=== PATIENT | female | born 1960 | race African-American/Black ===

== ENCOUNTER 2018-11-11 09:12 | Emergency (ER) | payer MEDICARE, OTHER ==
[~2018-11-11] VITALS: Ht 160 cm; Wt 103.7 kg
[~2018-11-11 09:12] MED LIST: ABILIFY 5 MG TAB5 M1 PO; ABILIFY MAINTE400 MG IM; AMLODIPINE BESYL5 MG PO; ASA81BEC PO; ASPIRIN81 M2 PO; ATORVASTATIN CA10 MG PO; AYR50 ML NASAL; BENGAY85 GM TP; BENZTROPINE MES1 MG PO; BISMATROL262 MG/15 PO; CELEBREX 200 M200 M1 PO; CLONIDINE HCL0.2 M2 PO; CLONIDINE-TTS0.3 MG TRANSDERM; COLACE100 MG PO; DESYREL50 MG PO; DOXYCYCLINE 10100 M1 PO; HYDROCHLOROTH12.5 MG PO; IBUPROFEN 600600 M1 PO; K-DUR10 MEQ PO; LIPITOR 10 MG10 M1 PO; LORTAB 5-500 T1 EAC1 PO; LOSARTAN POTASS50 MG PO; MECLIZINE HCL25 M1 PO; MOM PO; MYLANTA 12 OZ355 M1 PO; NOVOLOG100 UNIT/1; PREDNISONE 10 M10 M1 PO; PREPARATION H C51 G1 RECTAL; PROAIR HFA8.5 GM INH; PROTONIX40 M2 PO; RISPERDAL4 M1 PO; TOPROL XL100 MG PO; TOPROL XL25 MG PO; TOPROL XL50 MG PO; TRAZODONE HCL PO; TYLENOL EX-STR500 M2 PO; VENTOLIN HFA 1818 GM; WELLBUTRIN XL150 M1 PO
[2018-11-11] MEDS ORDERED: GABAPENTIN 100100 MG PO (10:40)
[2018-11-11] MEDS ORDERED: TRAZODONE HCL50 MG PO (10:40)
[2018-11-11] MEDS ORDERED: METFORMIN HCL500 MG PO (10:41)
[2018-11-11] MEDS ORDERED: ABILIFY15 MG PO (10:42)
[2018-11-11] MEDS ORDERED: SERTRALINE HCL100 MG PO (10:44)
[2018-11-11] MEDS ORDERED: LIPITOR10 MG PO (11:16)
[2018-11-11] MEDS ORDERED: AMLODIPINE BESY10 MG PO (11:16)
[2018-11-11] MEDS ORDERED: NOVOLOG100 UNIT/1 SUBQ (11:18)
[2018-11-11 11:44] VITALS: BP 166/99
[2018-11-11] MEDS ORDERED: ACETAMINOPHEN500 M1 PO (11:55)
== END 2018-11-11 11:44 | disposition home or self-care (01) ==
LOC: ER 09:12
DX: M25.511 Pain in right shoulder (principal); M25.551 Pain in right hip; F17.210 Nicotine dependence, cigarettes, uncomplicated; Z88.0 Allergy status to penicillin; Z88.1 Allergy status to other antibiotic agents; Z88.8 Allergy status to other drugs, medicaments and biological substances; Z88.7 Allergy status to serum and vaccine; W18.39XA Other fall on same level, initial encounter; Y93.89 Activity, other specified; Y92.89 Other specified places as the place of occurrence of the external cause; Y99.8 Other external cause status